=== PATIENT | male | born 1970 | race Caucasian/White ===

== ENCOUNTER 2020-07-28 19:45 | Inpatient (IN) | payer MEDICAID ==
[~2020-07-28] VITALS: Ht 170.2 cm; Wt 132.9 kg
[2020-07-28] MEDS ORDERED: SODIUM CHLORIDE 0.9% 1,000 ML IV ONE (22:45)
[2020-07-28 23:14] LABS: BASOPHILS % 0.9 % (0.0-2.0); EOSINOPHILS % 0.1 % (0.0-5.0); HEMATOCRIT. 42.6 % (42.0-52.0); HEMOGLOBIN. 15.1 g/dL (14.0-18.0); LYMPHOCYTES % 16.1 % (20.0-50.0); MEAN CORPUSCULAR HEMOGLOBIN 31.6 pg (28.0-32.0); MEAN CORPUSCULAR VOLUME 89.3 fL (80.0-94.0); MEAN PLATELET VOLUME 8.4 fl (7.4-10.4); MONOCYTES % 8.5 % (2.0-8.0); NEUTROPHILS % 74.4 % (40.0-76.0); PLATELET 232 x1000/uL (130-400); RED BLOOD CELL COUNT 4.77 mill/uL (4.7-6.1); RED CELL DISTRIBUTION WIDTH 13.5 % (11.6-14.6)
[2020-07-28 23:21] LABS: CHLORIDE 103 mEq/L (98-107)
[2020-07-28 23:26] LABS: ETHANOL BLOOD < 10 mg/dL
[2020-07-28 23:59] LABS: CREATINE KINASE 5579 IU/L (39-308)
[2020-07-29] MEDS ORDERED: SODIUM CHLORIDE 0.9% 1,000 ML IV ONE ×2 (00:15)
[2020-07-29] MEDS ORDERED: ZIPRASIDONE MESYLATE 20MG/VIAL IM ONE (05:15)
[2020-07-29 08:00] VITALS: BP 191/93
[2020-07-29] MEDS ORDERED: ACETAMINOPHEN 325MG TABLET PO PRN (09:30)
[2020-07-29] MEDS: SODIUM CHLORIDE 0.9% 1,000 ML IV SCH (09:30)
[2020-07-29] MEDS ORDERED: ONDANSETRON HCL 4MG/2ML INJ IV PRN (09:30)
[2020-07-29] MEDS ORDERED: LORAZEPAM 2MG/ML CPJ IV PRN (09:30)
[2020-07-29] MEDS ORDERED: POTASSIUM CHLORIDE INJ 40 MEQ in DEXT 5% WATER 250 ML IV NR (11:00)
[2020-07-29 12:00] VITALS: BP 125/72
[2020-07-29] MEDS: AMLODIPINE 10MG TABLET PO SCH (12:00)
[2020-07-29 14:50] VITALS: BP 185/102
[2020-07-29 16:00] VITALS: BP 141/91
[2020-07-29] MEDS ORDERED: HYDRALAZINE HCL 100MG TABLET PO NR (16:30)
[2020-07-29 20:00] VITALS: BP 189/105
[2020-07-29] MEDS ORDERED: HYDRALAZINE HCL 100MG TABLET PO SCH (21:00)
[2020-07-29 22:00] VITALS: BP 190/163
[2020-07-29] MEDS: HYDRALAZINE HCL 50MG TABLET PO SCH (22:15)
[2020-07-30 00:02] VITALS: BP 179/106
[2020-07-30] MEDS: LORAZEPAM 2MG/ML CPJ IV PRN ×2 (00:18→09:05)
[2020-07-30 02:00] VITALS: BP 128/80
[2020-07-30 03:54] LABS: *AMPHETAMINES SCREEN URINE NEGATIVE (NEGATIVE); *BARBITURATES SCREEN URINE NEGATIVE (NEGATIVE); *BENZODIAZEPINES SCREEN URINE NEGATIVE (NEGATIVE); *COCAINE SCREEN URINE NEGATIVE (NEGATIVE); CANNABINOID URINE SCREEN PRESUMTIVE POSITIVE (NEGATIVE); METHADONE URINE SCREEN NEGATIVE (NEGATIVE); OPIATES URINE SCREEN NEGATIVE (NEGATIVE); PHENCYCLIDINE URINE SCREEN NEGATIVE (NEGATIVE)
[2020-07-30 04:00] VITALS: BP 131/68
[2020-07-30 05:58] VITALS: BP 123/70
[2020-07-30 07:03] LABS: PHOSPHORUS 2.2 mg/dL (2.5-4.9)
[2020-07-30 08:00] VITALS: BP 170/94
[2020-07-30] MEDS: AMLODIPINE 10MG TABLET PO SCH (08:36)
[2020-07-30] MEDS: HYDRALAZINE HCL 50MG TABLET PO SCH (08:36)
[2020-07-30] MEDS: SODIUM CHLORIDE 0.9% 1,000 ML IV SCH (09:47)
== END 2020-07-30 12:00 | disposition left against medical advice (07) | DRG 199 ==
LOC: ER 19:45 → 5EST 07-29 02:33 → EDBEDREQ 07-29 04:55 → ENRESERV 07-29 07:56 → ER 07-29 10:01
PROVIDERS: ADMIT Internal Medicine; ATTEND Internal Medicine
DX: I16.0 Hypertensive urgency (principal); N17.9 Acute kidney failure, unspecified; M62.82 Rhabdomyolysis; Z78.1 Physical restraint status; Z68.42 Body mass index [BMI] 45.0-49.9, adult; Z53.21 Procedure and treatment not carried out due to patient leaving prior to being seen by health care provider; E66.9 Obesity, unspecified; R74.01 Elevation of levels of liver transaminase levels; E87.6 Hypokalemia; I10 Essential (primary) hypertension; Z79.899 Other long term (current) drug therapy; Z71.3 Dietary counseling and surveillance
CPT/HCPCS: 36415; 71045; 80053; 80305; 80307; 80320; 80329; 82550; 83605; 83880; 83970; 84100; 84443; 84484; 85025; 99291; J2060; J3480; J3486; J7030; J7060; G0480